=== PATIENT | male | born 1990 | race Two or more races ===

== ENCOUNTER 2017-02-16 17:19 | Emergency (ER) | payer MEDICAID ==
[2017-02-16 17:26] VITALS: BP 132/70; RESP 16; O2SAT 95
[2017-02-16] MEDS ORDERED: diphenhydrAMINE 25 MG CAP PO ONE (17:46)
[2017-02-16] MEDS ORDERED: FAMOTIDINE 20 MG TAB PO ONE (17:46)
--- NOTE | 2017-02-16 17:46 | EDPHY ---
H & P Time Seen by Provider: 02/16/17 17:27 HPI/ROS: CHIEF COMPLAINT: Rash HISTORY OF PRESENT ILLNESS : This patient is a 26 year old male presenting today with generalized pruritic urticaria onset one week ago. Today he states the rash has intensified and he feels he is "itching from the inside out". He was evaluated at [facility] two days ago, 02/14/17. He was prescribed a 7-day Prednisone taper, and has taken 40mg PO prednisone today. He states he took Benadryl at the onset of symptoms one week ago, but has not taken any additional Benadryl or other allergy medication since. He denies shortness or breath, swelling in his throat , fever, or other associated symptoms. He denies having used new soaps or detergents, or any recent changes in environment. REVIEW OF SYSTEMS: General: No fever HEENT: No eye drainage, no oral swelling Respiratory: No shortness of breath Gastrointestinal: No vomiting Skin: +rash Neurologic: no BRICEÑO Past Medical/Surgical History: Denies. Social History: Student at [employer], Medicaid patient Smoking Status: Never smoked Physical Exam: General Appearance: Alert, no distress Eyes: Pupils equal and round, no periorbital swelling ENT, Mouth: Mucous membranes moist, no oral swelling Neck: Normal inspection, no stridor Respiratory: Lungs are clear to auscultation, no wheezing Cardiovascular: Regular rate and rhythm Neurological: A&O, nonfocal, normal gait Skin: Generalized hives Extremities: No swelling Psychiatric: Mood and affect normal Constitutional: Initial Vital Signs Temperature (C) 36.8 C 02/16/17 17:23 Heart Rate 93 02/16/17 17:23 Respiratory Rate 16 02/16/17 17:23 Blood Pressure 132/70 H 02/16/17 17:23 O2 Sat (%) 95 02/16/17 17:23 O2 Delivery Mode Room Air Allergies/Adverse Reactions: No Known Allergies Allergy (Verified 02/02/15 17:10) Home Medications: Medication Instructions Recorded Prednisolone 02/16/17 Medical Decision Making ED Course/Re-evaluation: This is a 26 year old male presenting with generalized pruritic urticaria for the past week. The patient has been evaluated at [facility] and was prescribed a 7-day Prednisone taper. He has taken 40mg Prednisone today prior to arrival. On exam, he has generalized urticaria. No tongue or facial swelling. Lungs are clear to auscultation. Administered 25g PO Benadryl and 20mg PO Pepcid to treat symptoms. The patient will be discharged home with instructions to continue his Prednisone as well as take 25mg Benadryl three times per day and 20mg Pepcid daily. He has been referred to [facility] if he would like to determine the cause of his reaction. Strict return precautions discussed. The patient is comfortable with this plan. Differential Diagnosis: The differential diagnosis included but was not limited to angioedema, anaphylaxis, anaphylactoid reaction, urticarial reaction, and other infectious causes for skin rash. - Data Points Medications Given: Discontinued Medications Diphenhydramine HCl (Benadryl) 25 mg PO EDNOW ONE Stop: 02/16/17 17:47 Last Admin: 02/16/17 17:55 Dose: 25 mg Famotidine (Pepcid) 20 mg PO EDNOW ONE Stop: 02/16/17 17:47 Last Admin: 02/16/17 17:55 Dose: 20 mg Departure - Departure Disposition: Home, Routine, Self-Care Clinical Impression: Urticaria Allergic reaction Qualifiers: Encounter type: initial encounter Qualified Code(s): T78.40XA - Allergy, unspecified, initial encounter Condition: Good Instructions: Urticaria (ED), General Allergic Reaction (ED) Additional Instructions: 1. Take Benadryl as directed three times daily until your symptoms completely resolve. 2. Finish your Prednisone taper as prescribed. 3. Buy [id number] Pepcid and take 20mg by mouth daily until your symptoms completely resolve. 4. Follow up with an county home demonstration agent if you would like to to determine the cause of your reaction. We have referred you to Dr. Valle at [facility]. 5. Return to the Emergency Department for shortness of breath, swelling in your mouth or throat, or other worsening of condition. Referrals: Jeff Rodríguez MD [Primary Care Provider] - As per Instructions Wilfredo Valle MD [Medical Doctor] - As per Instructions Report Scribed for: Tiesha Ivy Report Scribed by: Trina Champion Date of Report: 02/16/17 Time of Report: 17:51 Physician Review and Approval Statement: 05/11/17 17:51 Portions of this note were transcribed by a medical center representative. I personally performed a history, physical exam, medical decision making, and confirmed accuracy of information the transcribed note.
[2017-02-16 18:01] VITALS: PULSE 90; TEMP 97.5
== END 2017-02-16 18:01 | disposition home or self-care (01) ==
DX: L50.0 Allergic urticaria (principal)